=== PATIENT | female | born 1945 | race Caucasian/White ===

== ENCOUNTER 2020-01-05 13:19 | Day surgery (SDC) | payer MEDICARE, OTHER ==
[~2020-01-05] VITALS: Ht 154.9 cm; Wt 52.7 kg
[2020-01-05] MEDS ORDERED: LACTATED RINGERS 1,000 ML IV SCH (14:02)
[2020-01-05 14:16] VITALS: BP 131/82
[2020-01-05] MEDS ORDERED: CHLORHEXIDINE 15 ML UDC MM ONE (14:30)
[2020-01-05] MEDS ORDERED: LORA-445 PO (14:39)
[2020-01-05] MEDS ORDERED: VITAMIND3 (14:39)
[2020-01-05] MEDS ORDERED: AMIT50TA PO (14:39)
[2020-01-05] MEDS ORDERED: ACET325C6 PO (14:39)
[2020-01-05] MEDS ORDERED: CYAN50008 PO (14:39)
[2020-01-05] MEDS ORDERED: IRON15TA3 PO (14:39)
[2020-01-05] MEDS ORDERED: SIMV10TA18 PO (14:39)
[2020-01-05] MEDS ORDERED: [UNRECOGNIZED DRUG - CODE] PO (14:39)
[2020-01-05] MEDS ORDERED: PARO20TA4 PO (14:39)
[2020-01-05] MEDS ORDERED: MIRT15TA94 PO (14:39)
[2020-01-05] MEDS ORDERED: OXYC5TAB2 PO (14:39)
[2020-01-05] MEDS ORDERED: HYOS0.1281 SL (14:39)
[2020-01-05] MEDS ORDERED: CELE200C PO (14:39)
[2020-01-05] MEDS ORDERED: PROPOFOL 10 MG/ML, 100ML IV ONE (14:52)
[2020-01-05] MEDS ORDERED: HALOPERIDOL 5 MG/ML IV PRN (15:30)
[2020-01-05] MEDS ORDERED: OXYcodone 5 MG/5 ML ORAL.SOL UDC PO PRN (15:30)
[2020-01-05] MEDS ORDERED: FENTANYL PF 100 MCG/2ML IV PRN (15:30)
[2020-01-05] MEDS ORDERED: PROMETHAZINE 25 MG/ML, 1ML IV PRN (15:30)
[2020-01-05] MEDS ORDERED: HYDROmorphone 2 MG/ML, 1ML IVPush PRN (15:30)
[2020-01-05] MEDS ORDERED: LABETALOL 5MG/ML, 20ML IV PRN (15:30)
[2020-01-05] MEDS ORDERED: hydrALAzine 20 MG/ML, 1ML IV PRN (15:30)
[2020-01-05] MEDS ORDERED: ALBUTEROL SULFATE 2.5 MG/3 ML NPPB PRN (15:30)
== END 2020-01-05 16:45 | disposition home or self-care (01) ==
LOC: OUT 13:19
PROVIDERS: ATTEND Internal Medicine Geriatric Medicine
DX: K86.89 Other specified diseases of pancreas (principal); Z11.59 Encounter for screening for other viral diseases; C25.1 Malignant neoplasm of body of pancreas; Z79.891 Long term (current) use of opiate analgesic; Z79.899 Other long term (current) drug therapy
CPT/HCPCS: 43242; 87635; 88172; 88173; 88307; 93005; J2704